=== PATIENT | male | born 1995 | race African-American/Black ===

== ENCOUNTER 2018-07-09 17:55 | Emergency (ER) | payer SELFPAY ==
[2018-07-09] MEDS ORDERED: DOXYCYCLINE 100 MG CAPSULE PO ONE (20:12)
--- NOTE | 2018-07-09 20:21 | ED Physician Documentation ---
General Adult - HISTORIAN Historian: patient - HPI Stated Complaint: swollen testicle Chief Complaint: General Adult Additional Information: Swollen and sore testicles for a few days. Seen at [facility] yesterday. Given ceftriaxone and prescription for doxycycline. Did not fill doxy script as he says he was told to fill it only if he didn't get better. Comes to ER because testicles are still swollen and he feels tired. In good health otherwise. - ROS CONST: no problems - PAST HX Past History: none Allergies/Adverse Reactions: Allergies Allergy/AdvReac Type Severity Reaction Status Date / Time Penicillins Allergy Verified 07/09/18 20:12 Home Medications: Ambulatory Orders Medication Instructions Recorded NK 07/09/18 - SOCIAL HX Smoking History: non-smoker - FAMILY HX Family History: No - VITAL SIGNS Vital Signs: Vital Signs Temp Pulse Resp BP Pulse Ox 97.8 F 70 16 137/49 97 07/09/18 20:07 07/09/18 20:07 07/09/18 20:07 07/09/18 20:07 07/09/18 20:07 - REVIEWED ASSESSMENTS Nursing Assessment Reviewed: Yes Vitals Reviewed: Yes ED Results Lab/Radiology - Orders Orders: ED Orders Category Date Time Status Doxycycline Monohydrate [Vibramycin] Med 07/09/18 20:12 Discontinued 100 mg PO NOW ONE General Adult Physical Exam - PHYSICAL EXAM GENERAL APPEARANCE: no distress EENT: eye inspection normal, ENT inspection normal NECK: normal inspection, supple RESPIRATORY: no resp distress BACK: other (erect posture, movements w/o pain) SKIN: normal color EXTREMITIES: normal range of motion (gait and stance) NEURO: CN's nml as tested, motor nml, sensation nml Discharge Clincal Impression: Testicular/scrotal pain Referrals: Primary Doctor,No [Primary Care Provider] - 2 Days Condition: Good Disposition: 01 HOME, SELF-CARE Decision to Admit: NO Decision Time: 20:12
[2018-07-09 20:23] VITALS: BP 113/68
== END 2018-07-09 20:25 | disposition home or self-care (01) ==
LOC: ED 17:55
DX: N50.819 Testicular pain, unspecified (principal)
CPT/HCPCS: 99282; 99283